=== PATIENT | male | born 1955 | race Caucasian/White ===

== ENCOUNTER 2021-01-17 08:02 | Outpatient (RCR) | payer OTHER, SELFPAY ==
[2021-01-17 10:08] LABS: MANUAL DIFF FLAG NO
[2021-01-17 10:16] LABS: Basophils Percent Auto 0.5 % (0-2); Eosinophils Absolute Auto 0.2 X10*3/uL (0.0-0.4); Eosinophils Percent Auto 2.4 % (0-4); Hemoglobin 13.2 g/dl (14.0-18.0); Imm Gran Abs Auto 0.02 X10*3/uL (0.00-0.03); Imm Gran Pct Auto 0.3 % (0.0-0.4); Lymphocytes Absolute Auto 2.5 X10*3/uL (1.2-4.9); Lymphocytes Percent Auto 30.9 % (20-40); Mean Corpuscular HGB Conc 33.8 g/dl (31.0-36.0); Mean Corpuscular Hemoglobin 31.1 pg (27.0-33.0); Mean Platelet Volume 10.3 fL (9.4-12.4); Monocytes Absolute Auto 0.7 X10*3/uL (0.1-1.2); Monocytes Percent Auto 8.9 % (2-11); Neutrophils Absolute Auto 4.6 X10*3/uL (2.0-8.3); Platelet Count 196 X10*3/uL (160-400); Red Blood Count 4.24 X10*6/uL (4.60-5.80); Red Cell Distribution Width 12.8 % (11.0-16.0)
[2021-01-17 10:39] LABS: Anion Gap 15 (12-20); Blood Urea Nitrogen 38 mg/dL (9-16); C Reactive Protein 0.68 mg/dL (< or = 0.50); Calcium 9.9 mg/dL (8.4-10.2); Carbon Dioxide 24 mmol/L (22-29); Chloride 103 mmol/L (96-108); Estimated Glomerular Filt Rate 44; Glucose Fasting 149 mg/dL (60-99); Potassium 4.8 mmol/L (3.3-5.1); Sodium 137 mmol/L (135-145)
[2021-01-17 11:02] LABS: Estimated Average Glucose 131 mg/dL; Hemoglobin A1C 150.8123 umol/L; Hemoglobin A1c % 6.2 %
[2021-01-17 11:16] LABS: Erythrocyte Sedimentation Rate 21 MM/HR (0-15)
== END 2021-03-07 16:06 | disposition home or self-care (01) ==
LOC: HO.WCC 08:02
PROVIDERS: PCP Family Medicine; Visit Provider Physician Assistant
DX: Z09 Encounter for follow-up examination after completed treatment for conditions other than malignant neoplasm (principal); E11.51 Type 2 diabetes mellitus with diabetic peripheral angiopathy without gangrene; E11.69 Type 2 diabetes mellitus with other specified complication; M86.272 Subacute osteomyelitis, left ankle and foot; I50.9 Heart failure, unspecified; L84 Corns and callosities; Z89.412 Acquired absence of left great toe; Z86.31 Personal history of diabetic foot ulcer
CPT/HCPCS: 11042; 36415; 80048; 83036; 84134; 85025; 85652; 86140; 97597; 99212; 99213

== ENCOUNTER → 2021-02-25 14:47 | Outpatient (BNVA) | payer OTHER, SELFPAY | PROVIDERS: PCP Family Medicine; Visit Provider Internal Medicine ==

== ENCOUNTER → 2021-04-08 15:41 | Outpatient (BNVA) | payer OTHER, SELFPAY | PROVIDERS: Visit Provider Internal Medicine ==

== ENCOUNTER 2021-08-18 09:00 | Outpatient (RCR) | payer MEDICARE, SELFPAY ==
[2021-09-28 10:22] LABS: MANUAL DIFF FLAG NO
[2021-09-28 10:45] LABS: Basophils Percent Auto 0.6 % (0-2); Eosinophils Absolute Auto 0.1 X10*3/uL (0.0-0.4); Eosinophils Percent Auto 2.8 % (0-4); Hematocrit 40.8 % (42.0-52.0); Hemoglobin 14.3 g/dl (14.0-18.0); Imm Gran Abs Auto 0.01 X10*3/uL (0.00-0.03); Imm Gran Pct Auto 0.2 % (0.0-0.4); Lymphocytes Absolute Auto 1.7 X10*3/uL (1.2-4.9); Mean Corpuscular Hemoglobin 31.8 pg (27.0-33.0); Mean Corpuscular Volume 90.9 fL (80.0-98.0); Mean Platelet Volume 10.7 fL (9.4-12.4); Monocytes Absolute Auto 0.5 X10*3/uL (0.1-1.2); Monocytes Percent Auto 10.4 % (2-11); Neutrophils Absolute Auto 2.7 x10*3/uL (2.0-8.3); Platelet Count 173 X10*3/uL (160-400); Red Blood Count 4.49 X10*6/uL (4.60-5.80); Red Cell Distribution Width 12.8 % (11.0-16.0); White Blood Count 5.1 X10*3/uL (4.8-10.8)
[2021-09-28 10:56] LABS: Estimated Average Glucose 140 mg/dL; Hemoglobin A1c % 6.5 %
[2021-09-28 11:35] LABS: Erythrocyte Sedimentation Rate 14 MM/HR (0-15)
[2021-09-28 11:54] LABS: Anion Gap 13 (12-20); Blood Urea Nitrogen 25 mg/dL (9-16); C Reactive Protein 0.28 mg/dL (< or = 0.50); Carbon Dioxide 25 mmol/L (22-29); Chloride 102 mmol/L (96-108); Estimated Glomerular Filt Rate 50; Glucose Random 189 mg/dL (60-115); Sodium 136 mmol/L (135-145)
== END 2021-11-10 12:59 | disposition home or self-care (01) ==
LOC: HO.WCC 09:00
PROVIDERS: Physician Assistant; Visit Provider Surgery
DX: E11.621 Type 2 diabetes mellitus with foot ulcer (principal); E11.51 Type 2 diabetes mellitus with diabetic peripheral angiopathy without gangrene; L97.521 Non-pressure chronic ulcer of other part of left foot limited to breakdown of skin; I50.9 Heart failure, unspecified; Z89.412 Acquired absence of left great toe
CPT/HCPCS: 11042; 15275; 36415; 80048; 83036; 84134; 85025; 85652; 86140; 97597; 99212; Q4187

== ENCOUNTER 2021-09-28 10:19 | Outpatient (REF) | payer MEDICARE, SELFPAY ==
--- NOTE | ~2021-09-28 | MR_ITS ---
EXAMINATION: MRI FOOT WITHOUT AND WITH CONTRAST, LEFT CLINICAL INFORMATION: Non-healing left great toe plantar wound. Evaluate for osteomyelitis. 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 COMPARISON: MRI of the left foot January 2021. TECHNIQUE: MRI of the left foot was performed without and with contrast. Contrast dose 10 mL of Gadavist given intravenously. FINDINGS: GREAT TOE: Postoperative changes with amputation distal to the level of the proximal phalanx of the great toe as seen previously. In the plantar subcutaneous soft tissues overlying the remaining portion of the distal phalanx, there is abnormal signal manifested by decreased T1 and heterogeneous increased T2 signal and generalized enhancement consistent with cellulitis. No focal abscess or sinus tract is noted. There is minimal, if any, abnormal signal and enhancement in the cortical/subcortical region of the distal tip of the plantar aspect of the 1st metatarsal seen on a single sagittal image 22, series 5 and series 11. There is no clear cortical erosion. The bone is otherwise unremarkable with normal signal. The 1st MTP joint remains normal. The sesamoids are normal. The 1st tarsometatarsal joint is normal. 2ND THROUGH 5TH TARSOMETATARSAL JOINTS: There is persistent abnormality with subchondral cystic change and prominent marrow edema crossing the joints and extending distally into the 4th and 5th metatarsals, unchanged compared to prior. This has the appearance of severe arthrosis with or without concomitant neuropathic arthropathy. 4TH METATARSOPHALANGEAL JOINT: There is mild joint effusion and synovitis and localized tenosynovitis of the flexor tendon. The bone signal is normal. Mild edema in the subcutaneous soft tissues. 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 Persistent enlargement of the flexor hallucis longus tendon compatible with postsurgical change and/or tearing of the tendon with some proximal retraction. MR/MR foot LT wo/w con IMPRESSION: Findings compatible with cellulitis of the plantar soft tissues overlying the remaining proximal phalanx. Equivocal subtle abnormality in the plantar cortex at the base of the remaining 1st proximal phalanx more likely reactive than representing focal osteomyelitis. 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 Mild arthrosis of the 4th metatarsophalangeal joint with mild joint effusion and synovitis and adjacent flexor tenosynovitis.
== END 2021-09-28 10:20 | disposition home or self-care (01) ==
LOC: HO.MRI 10:19
PROVIDERS: Visit Provider Physician Assistant
DX: S91.102A Unspecified open wound of left great toe without damage to nail, initial encounter (principal); X58.XXXA Exposure to other specified factors, initial encounter; Y93.9 Activity, unspecified; Y92.9 Unspecified place or not applicable; Y99.9 Unspecified external cause status
CPT/HCPCS: 73720; A9585